=== PATIENT | male | born 1945 | race Caucasian/White ===

== ENCOUNTER 2018-02-23 09:46 | Outpatient (CLI) | payer MEDICARE, OTHER ==
[~2018-02-23] VITALS: Ht 177.8 cm; Wt 63.5 kg
[2018-02-23] MEDS ORDERED: albuterol 2.5 MG/3 ML nebule NEB ONE (11:15)
[2018-02-23 19:30] LABS: TOTAL HEMOGLOBIN 12.2 G/dl (14.0-18.0)
== END 2018-02-23 23:59 | disposition home or self-care (01) ==
LOC: RT 09:46
PROVIDERS: ATTEND Internal Medicine Pulmonary Disease
DX: J44.9 Chronic obstructive pulmonary disease, unspecified (principal); I50.9 Heart failure, unspecified; Z87.891 Personal history of nicotine dependence
CPT/HCPCS: 85018; 94060; 94727; 94729; 94760

== ENCOUNTER 2021-06-09 10:45 | Observation (INO) | payer MEDICARE, OTHER ==
[2021-06-06 11:22] LABS: CLARITY,URINE CLEAR (Clear); COLOR,URINE YELLOW (Yellow); GLUCOSE, URINE NEGATIVE (Neg); KETONES,URINE NEGATIVE (Neg); LEUKOCYTE ESTERASE ,URINE NEGATIVE (Neg); NITRITES, URINE NEGATIVE (Neg); OCCULT BLOOD,URINE NEGATIVE (Neg); PROTEIN,URINE NEGATIVE (Neg); UROBILINOGEN,URINE 0.2 E.U/dL (0.2-1.0)
[2021-06-06 11:27] LABS: UA COLLECTION TYPE CLN CATCH MIDSTREAM
[2021-06-06 11:29] LABS: BASOPHILS % (AUTO) 0.5 % (0-1); EOSINOPHILS # (AUTO) 0.2 X10'3 (0-0.9); EOSINOPHILS % (AUTO) 2.9 % (0-6); LYMPHOCYTES # (AUTO) 1.1 X10'3 (1.1-4.8); LYMPHOCYTES % (AUTO) 20.4 % (21-51); MEAN CORPUSCULAR HEMOGLOBIN 28.5 PG (27.0-31.0); MEAN CORPUSCULAR HGB CONC 32.6 g/dL (33.0-36.5); MEAN CORPUSCULAR VOLUME 87.4 FL (78-98); MEAN PLATELET VOLUME 7.7 FL (7.4-10.4); MONOCYTES # (AUTO) 0.6 X10'3 (0-0.9); NEUTROPHILS # (AUTO) 3.5 X10'3 (1.8-7.7); NEUTROPHILS % (AUTO) 65.2 % (42-75); PRE OP HEMATOCRIT 36.7 % (42.0-52.0); PRE OP HEMOGLOBIN 11.9 g/dL (14.0-17.9); PRE OP PLATELET COUNT 290 X10'3 (140-440); RED CELL DISTRIBUTION WIDTH 14.1 % (11.5-14.5)
[2021-06-06 11:34] LABS: PRE OP INR 1.1 INR; PRE OP PROTIME 11.4 SECONDS (9.0-12.0)
[2021-06-06 11:39] LABS: BLOOD UREA NITROGEN 37 MG/DL (7-18); BUN/CREATININE RATIO 14.2 (5.4-32.0); CALCIUM 8.9 MG/DL (8.5-10.1); CHLORIDE 105 MMOL/L (99-107); PRE OP ANION GAP 10 (8-16); PRE OP BILIRUB, TOTAL 0.3 MG/DL (0.0-1.0); PRE OP GLUCOSE 98 MG/DL (70-104); PRE OP POTASSIUM 4.9 MMOL/L (3.4-5.1); PRE OP SODIUM 141 MMOL/L (135-145); eGFR 24 ML/MIN
[2021-06-06 11:40] LABS: ALBUMIN 3.3 G/DL (3.4-5.0); ALBUMIN/GLOBULIN RATIO 0.9 (1.1-1.5); ALKALINE PHOSPHATASE 49 IU/L (46-116); PRE OP ALT 17 U/L (30-65); PRE OP AST 14 U/L (10-37)
[~2021-06-09] VITALS: Ht 177.8 cm; Wt 108.5 kg
[2021-06-09] VITALS (31 sets, daily range): BP systolic 110–165; BP diastolic 69–111
[~2021-06-09 10:45] MED LIST: ALBU18HF2 INH; AMLO10TA13 PO; ASPI-12 PO; BUDE0.5A11 NEB; CARV-50 PO; DOCU100C40 PO; DOCUMENT DATE & TIME OF BETA-BLOCKER PO ONE; FENO145T25 PO; FLO0.4C PO; FURO40TA4 PO; MULT-1085 PO; OLME40TA18 PO; POTA-207 PO; albuterol 2.5 MG/3 ML nebule NEB ONE; b-complex; cefazolin/dext.iso 2gm/50ml IV ONE; famotidine 20mg tablet PO ONE; vitamin c; vitamin d
[2021-06-09] MEDS: ringers solution, lacted 1,000 ML IV SCH ×2 (11:21→22:26)
[2021-06-09] MEDS ORDERED: BUPIVACAINE liposomal/PF 13.3 MG/ML vial IM ONE (12:39)
[2021-06-09] MEDS ORDERED: LIDOcaine 1% (10mg/ml) 2ml vial ONE (12:39)
[2021-06-09] MEDS ORDERED: BUPIVAcaine 0.5% inj/PF 30 ML ONE (12:39)
--- NOTE | 2021-06-09 12:55 | NUR ---
PATIENT PREPARED FOR SURGERY, BLOOD SUGAR WAS LOW 69. DR THOMAS NOTIFIED. ALSO NOTIFIED OF HGB 11.9 CR 2.58 AND BUN 37. RESPIRATORY CALLED FOR BREATHING TREATMENT, IV STARTED IN RIGHT HAND. ABDOMEN SHAVED BY RUBIN, [employer]PER[employer] DEPARTMENT. AT BEDSIDE. PET SCAN AND NOTE FROM DR KURTZ'S OFFICE IN CHART. ANESTHESIA ASKING FOR MORE RECENT ECHO. DR VALENCIA OFFICE CALLED, PT IS SCHEDULED ON 07/08, NO ADDITIONAL INFO AVAILABLE FROM OFFICE. DR VELASQUEZ NOTIFIED.
[2021-06-09] MEDS ORDERED: ringers solution, lacted 1,000 ML IV SCH ×2 (13:00→14:15)
[2021-06-09] MEDS ORDERED: proCHLORperazine 10 MG/2 ml inj IV PRN (13:00)
[2021-06-09] MEDS ORDERED: meperidine/PF 25mg/ml syringe IV PRN ×2 (13:00)
[2021-06-09] MEDS ORDERED: morphine 2 MG/ML inj. syringe IV PRN ×2 (13:00→14:15)
[2021-06-09] MEDS ORDERED: ondansetron/PF 4mg/2ml inj IV PRN ×3 (13:00→21:25)
[2021-06-09] MEDS ORDERED: morphine 4 MG/ML inj SYRINge IV PRN ×2 (13:00→14:15)
--- NOTE | 2021-06-09 13:04 | NUR ---
BLOOD SUGAR RECHECKED 85. ANESTHESIA DR VELASQUEZ NOTIFIED RESPIRATORY THERAPY AT BEDSIDE, PT RECEIVING TREATMENT
[2021-06-09] MEDS ORDERED: dexamethasone sod phosphate 10mg/ml inj ONE (13:37)
[2021-06-09] MEDS ORDERED: desflurane 240ml liquid inh. IH ONE (13:37)
[2021-06-09] MEDS ORDERED: etomidate 2mg/ml inj. ONE ×2 (13:37→13:56)
[2021-06-09] MEDS ORDERED: fentaNYL/PF 50MCG/1 ML 2ML syringe ONE (13:46)
[2021-06-09] MEDS ORDERED: midazolam 1 mg/ML 2ml injection ONE (13:46)
[2021-06-09] MEDS ORDERED: rocuronium 10mg/ml inj IV ONE (13:56)
[2021-06-09] MEDS ORDERED: ondansetron/PF 4mg/2ml inj ONE (14:03)
[2021-06-09] MEDS ORDERED: fentaNYL/PF 50MCG/1 ML 2ML syringe IV PRN ×2 (14:15)
[2021-06-09] MEDS ORDERED: hydrALAZINE 20mg/ml inj. IV PRN (14:15)
[2021-06-09] MEDS ORDERED: enalaprilat dihydrate 2.5mg/2ml vial IV PRN (14:15)
[2021-06-09] MEDS ORDERED: albumin (Human) 5% 250ml 250 ML IV ONE (14:21)
[2021-06-09] MEDS ORDERED: glycopyrrolate 0.2mg/ml inj ONE (15:13)
[2021-06-09] MEDS ORDERED: neostigmine methylsulfate 1 MG/ML 10ml vial ONE (15:13)
--- NOTE | 2021-06-09 15:35 | NUR ---
Received from OR via [facility], accompanied by Anesthesiologist DR VALENZUELA and report given by Anesthesiolgist. PT PRESENTS WITH ART LINE LEFT WRIST, PIV 20G RIGHT HAND, ABD DREWSING MICHELLE CORONA, KAR. Addendum: 06/09/21 at 1557 by Lyndsey Deshpande RN, RN Amended: Links added.
[2021-06-09] MEDS ORDERED: acetaminophen 1,000mg/100ml IV 100 ML IV ONE (16:00)
[2021-06-09] MEDS: meperidine/PF 25mg/ml syringe IV PRN ×3 (16:08→18:18)
[2021-06-09] MEDS ORDERED: HYDROcodone/acetaminophen 10/325mg tab PO ONE (17:50)
--- NOTE | 2021-06-09 21:15 | NUR ---
PT UP AMBULATED 50 FEET TO THE BATHROOM. PT REFUSING TO TRY TO URINATE AT THIS TIME. PT AMBULATED BACK TO PT ROOM CO PAIN 11/17. PT BLADDER SCANNED WITH [address] KING NOTIFIED. ADMIT PT TO HOSPITAL FOR OBSERVATION. Addendum: 06/09/21 at 2137 by Lyndsey Deshpande RN, RN Amended: Links added.
[2021-06-09] MEDS ORDERED: mag hydrox/Alum hydrox/simeth 30ml oral suspension PO PRN (21:25)
[2021-06-09] MEDS ORDERED: HYDROmorphone inj. 0.5 MG/0.5 ML DISP.SYRIN IV PRN (21:25)
[2021-06-09] MEDS ORDERED: magnesium hydroxide 30ml (MOM) UD suspension PO PRN (21:25)
[2021-06-09] MEDS ORDERED: acetaminophen 325mg tablet PO PRN (21:25)
[2021-06-09] MEDS ORDERED: HYDROcodone/acetaminophen 10/325mg tab PO PRN (21:25)
--- NOTE | 2021-06-09 21:55 | NUR ---
Received report from ROBERT Solorio. Awaiting patient arrival to the floor.
[2021-06-09] MEDS ORDERED: albuterol 2.5 MG/3 ML nebule NEB PRN (22:25)
--- NOTE | 2021-06-09 22:26 | NUR ---
Report called to receiving nurse CINDY JONES. Transferred via HOSPITAL BED TO ROOM 4022B WHERE CINDY JONES WAS WAITING FOR PT. TWO Belongings BAGS, GLASSES AND DENTURES TO ROOM 4022B BED IN LOW LOCKED POSTIONS, PT GIVEN CALL LIGHT. Special Issues communicated to receiving nurse. Addendum: 06/09/21 at 2228 by Lyndsey Deshpande RN, RN Amended: Links added.
[2021-06-09] MEDS: dextrose 5%-lactated ringers 1,000 ML IV SCH (22:53)
[2021-06-10 02:00] VITALS: BP 147/90
--- NOTE | 2021-06-10 03:00 | NUR ---
Bladder scan showed 625 cc of urine. Informed patient that I will be catheterizing him drain urine from bladder, patient said "give me 10-15 minutes. I want to try peeing on my own." Privacy given, and will assess and continue to monitor.
[2021-06-10 06:00] VITALS: BP 159/88
--- NOTE | 2021-06-10 06:05 | NUR ---
Problems reprioritized. Patient report given, questions answered & plan of care reviewed with ROBERT Mayfield.
--- NOTE | 2021-06-10 06:10 | NUR ---
RECEIVED REPORT FROM ROBERT WHITE
[2021-06-10] MEDS: fenofibrate 145mg tablet PO SCH (07:11)
[2021-06-10] MEDS: multivitamins, therapeutics tablet PO SCH (07:13)
[2021-06-10] MEDS: amLODIPine 5mg tablet PO SCH (07:14)
[2021-06-10] MEDS: losartan 50mg tablet PO SCH (07:16)
[2021-06-10] MEDS: carVEDilol 12.5mg tablet PO SCH ×2 (07:17→20:00)
[2021-06-10] MEDS: docusate sod 100mg capsule PO SCH ×3 (07:18→20:00)
--- NOTE | 2021-06-10 07:23 | NUR ---
SCANNER NOT SCANNING INTO [employer], CHECKED ALL MEDS PRIOR TO ADMIN
[2021-06-10] MEDS: budesonide 0.5mg/2ml UD nebule IH SCH ×2 (07:33→20:14)
[2021-06-10] MEDS ORDERED: non-formulary drug (Aspirin/Calcium Carbonate/Mag (Aspirin Buffered 325 Mg Tab) 1 TAB) PO SCH (08:00)
[2021-06-10 10:00] VITALS: BP 139/75
--- NOTE | 2021-06-10 13:09 | NUR ---
earlier today surgeon was at bedside taking with patient and surgeon instructed nursing staff to removed cardoso cath and said 'the patient can go home today if he voids' currently waiting for patient to void
[2021-06-10 14:00] VITALS: BP 139/88
[2021-06-10] MEDS ORDERED: furosemide 40mg tablet PO SCH (14:26)
--- NOTE | 2021-06-10 16:38 | NUR ---
pt has had a difficult time voiding all day I bladder scanned pt and scanner said that bladder has 494 ml in bladder
--- NOTE | 2021-06-10 17:15 | NUR ---
pt attempted to void after bladder scan pt voided less than 50 ml in toilet sent a page to surgeon to notify of pt not being able to void currently waiting for surgeon to call back, no new orders at this time
--- NOTE | 2021-06-10 17:18 | NUR ---
surgeon said to place cardoso back into pt and send him home
--- NOTE | 2021-06-10 17:43 | NUR ---
pt is currently refusing to have a cardoso cath placed nursing staff has educated pt about the benefits of having a cardoso cath pt is still refusing to have cardoso cath placed and would like to try to void more continue to monitor
[2021-06-10] MEDS: dextrose 5%-lactated ringers 1,000 ML IV SCH (18:00)
--- NOTE | 2021-06-10 18:40 | NUR ---
gave report to connor dalton
[2021-06-10] MEDS ORDERED: tamsulosin 0.4mg capsule PO SCH (21:00)
--- NOTE | 2021-06-10 21:04 | NUR ---
Bladder scan pt, has 489 urine retention. Educated pt on the risk and pt agreed for catheter insertion per MD order.
[2021-06-10] MEDS ORDERED: LIDOcaine 2% 10ml TOPICAL JELLY (Urojet) MM ONE (21:05)
--- NOTE | 2021-06-10 22:40 | NUR ---
Inserted cardoso cath, pt tolerated it well without difficulty. Urine output from cardoso was 1500 cc. Will continue to monitor.
[2021-06-11 06:00] VITALS: BP 106/47
--- NOTE | 2021-06-11 06:40 | NUR ---
Patient in room [facility]TH[facility] 4022. I have received report from irving ryan and had the opportunity to ask questions and assume patient care.
[2021-06-11] MEDS: docusate sod 100mg capsule PO SCH ×2 (07:06→08:19)
[2021-06-11] MEDS ORDERED: potassium Cl 20 mEq SR tablet PO SCH (08:00)
[2021-06-11] MEDS ORDERED: furosemide 40mg tablet PO SCH (08:00)
[2021-06-11 08:13] VITALS: BP 126/75
[2021-06-11] MEDS: carVEDilol 12.5mg tablet PO SCH (08:19)
[2021-06-11] MEDS: fenofibrate 145mg tablet PO SCH (08:19)
[2021-06-11] MEDS: multivitamins, therapeutics tablet PO SCH (08:19)
[2021-06-11] MEDS: losartan 50mg tablet PO SCH (08:20)
[2021-06-11] MEDS: amLODIPine 5mg tablet PO SCH (08:20)
[2021-06-11] MEDS: dextrose 5%-lactated ringers 1,000 ML IV SCH (08:28)
[2021-06-11] MEDS: budesonide 0.5mg/2ml UD nebule IH SCH (09:07)
[2021-06-11 10:13] VITALS: BP 122/65
[2021-06-11 16:22] VITALS: BP 141/77
--- NOTE | 2021-06-11 17:00 | NUR ---
PT DISCHARGED IN STABLE CONDITION. LEFT FACILITY IN PRIVATE VEHICLE WITH . IV DC CANULA INTACT. PT HOME WITH FLOYD CATH. EDUCATION GIVEN ON FLOYD CARE. PT AWARE TO CALL DR MARTE OFFICE FOR FOLLOW UP APPT. ALL BELONGINGS IN HAND. ALL QUESTIONS ANSWERED. Addendum: 06/11/21 at 1816 by Antonella Salas RN Amended: Links added.
== END 2021-06-11 16:55 | disposition home or self-care (01) ==
LOC: PAS 10:45 → ORTHO 4S 21:33
PROVIDERS: ADMIT Surgery; ATTEND Surgery
DX: K43.2 Incisional hernia without obstruction or gangrene (principal); Z20.822 Contact with and (suspected) exposure to COVID-19; K66.0 Peritoneal adhesions (postprocedural) (postinfection); I48.91 Unspecified atrial fibrillation; I25.10 Atherosclerotic heart disease of native coronary artery without angina pectoris; I13.0 Hypertensive heart and chronic kidney disease with heart failure and stage 1 through stage 4 chronic kidney disease, or unspecified chronic kidney disease; I50.9 Heart failure, unspecified; N18.9 Chronic kidney disease, unspecified; J44.9 Chronic obstructive pulmonary disease, unspecified; Z79.899 Other long term (current) drug therapy
CPT/HCPCS: 36415; 49654; 71046; 80053; 81003; 82948; 85025; 85610; 85730; 87081; 87635; 94640; 94760; 96374; 96375; 96376; C1758; C1781; C9290; C9803; G0378; J0131; J1100; J2175; J2250; J2405; J2710; J3010; J3490; J7120; J7121; P9045; S0020; A4215; A4618

== ENCOUNTER 2022-09-22 10:55 | Day surgery (SDC) | payer MEDICARE, OTHER ==
[2022-09-18 11:29] LABS: BASOPHILS % (AUTO) 0.7 % (0-1); EOSINOPHILS # (AUTO) 0.2 X10'3 (0-0.9); HEMOGLOBIN 10.9 g/dl (14.0-17.9); LYMPHOCYTES % (AUTO) 18.9 % (21-51); MEAN CORPUSCULAR HEMOGLOBIN 29.1 PG (27.0-31.0); MEAN CORPUSCULAR HGB CONC 33.1 g/dL (33.0-36.5); MEAN CORPUSCULAR VOLUME 87.9 FL (78-98); MEAN PLATELET VOLUME 8.7 FL (7.4-10.4); MONOCYTES # (AUTO) 0.4 X10'3 (0-0.9); MONOCYTES % (AUTO) 8.3 % (2-12); NEUTROPHILS # (AUTO) 3.7 X10'3 (1.8-7.7); NEUTROPHILS % (AUTO) 69.1 % (42-75); PLATELET COUNT 243 X10'3 (140-440); RED BLOOD COUNT 3.75 X10'6 (4.70-6.10); RED CELL DISTRIBUTION WIDTH 17.5 % (11.5-14.5); WHITE BLOOD COUNT 5.4 X10'3 (4.5-11.0)
[2022-09-18 11:35] LABS: GLUCOSE 100 MG/DL (70-104)
[2022-09-18 11:36] LABS: ALBUMIN 2.9 G/DL (3.4-5.0); ANION GAP 10 (8-16); BLOOD UREA NITROGEN 69 MG/DL (7-18); BUN/CREATININE RATIO 18.4 (10.0-20.0); CALCIUM 8.9 MG/DL (8.5-10.1); CHLORIDE 106 MMOL/L (99-107); CREATININE 3.74 MG/DL (0.60-1.10); POTASSIUM 4.6 MMOL/L (3.5-5.1); SODIUM 140 MMOL/L (135-145); TOTAL CARBON DIOXIDE 24.5 MMOL/L (24-32); eGFR 16 ML/MIN
[2022-09-22] VITALS (9 sets, daily range): BP systolic 93–114; BP diastolic 59–71; PULSE 69–79; RESP 16; TEMP 98.1; O2SAT 94–98
[~2022-09-22] VITALS: Ht 177.8 cm; Wt 100.2 kg
[~2022-09-22 10:55] MED LIST changes: -DOCUMENT DATE & TIME OF BETA-BLOCKER PO ONE; -albuterol 2.5 MG/3 ML nebule NEB ONE; -b-complex; -cefazolin/dext.iso 2gm/50ml IV ONE; -famotidine 20mg tablet PO ONE; -vitamin c; -vitamin d
[2022-09-22] MEDS ORDERED: LORazepam 0.5 MG tablet PO PRN (11:15)
[2022-09-22] MEDS ORDERED: normal saline 1,000 ML IV SCH (11:15)
[2022-09-22] MEDS ORDERED: midazolam 1 mg/ML 2ml injection ONE (11:25)
[2022-09-22] MEDS ORDERED: LIDOcaine 1% (10mg/ml)w/preservative inj. 20ml MDV ONE (11:25)
[2022-09-22] MEDS ORDERED: fentaNYL/PF 50MCG/1 ML 2ML syringe ONE (11:25)
[2022-09-22] MEDS ORDERED: iohexol 350MG/ML 100ml bottle IV ONE (11:26)
[2022-09-22] MEDS ORDERED: BUME0.5T6 PO (11:58)
[2022-09-22] MEDS ORDERED: SACU1TAB PO (11:58)
[2022-09-22] MEDS ORDERED: DAPA10TA PO (11:58)
[2022-09-22] MEDS ORDERED: APIX5TAB3 PO (12:00)
[2022-09-22] MEDS ORDERED: FENO145T38 PO (12:00)
[2022-09-22] MEDS ORDERED: Vitamin B12 (12:01)
[2022-09-22] MEDS ORDERED: ASCO100031 (12:01)
[2022-09-22] MEDS ORDERED: B Complex (12:01)
[2022-09-22 13:14] LABS: ISTAT HGB MIX 9.5 g/dl (14.0-17.9); ISTAT Hct MIX 28 %PCV (42-52); ISTAT O2 SATURATION MIX VENOUS 68 % (60-80); ISTAT SOURCE VEN
[2022-09-22] MEDS ORDERED: HYDROcodone/acetaminophen 10/325mg tab PO PRN (13:50)
[2022-09-22] MEDS ORDERED: HYDROcodone/acetaminophen 5mg/325mg tablet PO PRN (13:50)
== END 2022-09-22 16:40 | disposition home or self-care (01) ==
LOC: SSTAY O 10:55
PROVIDERS: ATTEND Student in an Organized Health Care Education/Training Program
DX: I13.0 Hypertensive heart and chronic kidney disease with heart failure and stage 1 through stage 4 chronic kidney disease, or unspecified chronic kidney disease (principal); I50.22 Chronic systolic (congestive) heart failure; N18.9 Chronic kidney disease, unspecified; E78.5 Hyperlipidemia, unspecified; I48.0 Paroxysmal atrial fibrillation; M19.90 Unspecified osteoarthritis, unspecified site; Z95.2 Presence of prosthetic heart valve; Z98.890 Other specified postprocedural states; Z79.899 Other long term (current) drug therapy; Z79.01 Long term (current) use of anticoagulants
CPT/HCPCS: 33289; 36415; 80048; 82803; 85014; 85025; 93005; 99152; 99153; C2624; J1644; J2250; J3010; J3490; J7030; Q9967; A4620; A6258; A6449; C1751; C1769; C1894